=== PATIENT | female | born 1955 | race Hispanic/Latino ===

== ENCOUNTER 2016-11-16 07:33 | Day surgery (SDC) | payer OTHER ==
--- NOTE | 2016-11-16 10:31 | Short Stay Summary ---
Short Stay Documentation Date of service: 11/16/16 - History Principal diagnosis: thyroid nodules H&P: obtained from office - Allergies and Medications Current Medications: Allergies cephalexin monohydrate [From Keflex] Allergy (Verified 11/16/16 08:02) Rash Sulfa (Sulfonamide Antibiotics) Allergy (Verified 08/30/13 11:05) Hives Home Medications Medication Instructions Recorded Confirmed Last Taken Type Amlodipine Besylate/Benazepril 5 - 10 mg PO DAILY 08/30/13 11/16/16 11/15/16 History [Amlodipine-Benazepril 5-10 mg] Losartan/Hydrochlorothiazide 25 - 100 mg PO DAILY 08/30/13 11/16/16 11/15/16 History [Losartan-Hctz 100-25 mg Tab] Metformin HCl [Metformin] 1,000 mg PO BID 08/30/13 11/16/16 11/15/16 History glipiZIDE [Glipizide] 10 mg PO DAILY 08/30/13 11/16/16 11/15/16 History - Physical exam General appearance: no acute distress HEENT: Atraumatic, Mucous membr. moist/pink - Brief post op/procedure progress note Date of procedure: 11/16/16 Pre-op diagnosis: thyroid nodules Post-op diagnosis: same Procedure: US thyroid biopsy, left Anesthesia: local Findings: 2.4cm left thyroid nodule Surgeon: KELLEY LEAVITT Estimated blood loss: none Pathology: list (FNA x 3) Specimen disposition: to lab Condition: stable - Hospital course Hospital course: uneventful - Disposition Condition at discharge: Good Disposition: DISCHARGED TO HOME OR SELFCARE Short Stay Discharge Plan Follow up with: SUDARSHAN CHAKRABORTY MD [Primary Care Provider] - 7 Days
[2016-11-16 10:35] VITALS: BP 117/68
--- NOTE | 2016-11-16 11:05 | Ultrasound Report ---
ULTRASOUND BIOPSY THYROID: HISTORY: Thyroid nodules. DESCRIPTION OF PROCEDURE: Informed consent was obtained. Sterile technique was utilized. 1% lidocaine for skin anesthesia. Using ultrasound guidance, 3 fine needle aspirations were obtained from a complex nodule at the inferior pole of the left thyroid lobe measuring 2.4 x 2.0 cm. The samples were deemed adequate by the pathologist on site. No complications. IMPRESSION: Successful ultrasound-guided biopsy of the complex nodule near the inferior pole of the left thyroid lobe.
== END 2016-11-16 10:55 | disposition home or self-care (01) ==
LOC: OPU 07:33
PROVIDERS: ATTEND Specialist
DX: E04.1 Nontoxic single thyroid nodule (principal)
CPT/HCPCS: 60100; 76942; 88112; 88172; 88173; 88305